=== PATIENT | male | born 1985 | race American Indian/Alaskan Native ===

== ENCOUNTER 2020-03-30 11:13 | Emergency (ER) | payer SELFPAY ==
[2020-03-30] MEDS ORDERED: ONDANSETRON 4 MG/2 ML INJ IV ONE (13:09)
[2020-03-30] MEDS ORDERED: MORPHINE 2 MG/1 ML INJ IV ONE (13:09)
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
== END 2020-03-30 13:30 ==
LOC: ED 11:13
DX: T07.XXXA Unspecified multiple injuries, initial encounter (principal); I46.9 Cardiac arrest, cause unspecified; X58.XXXA Exposure to other specified factors, initial encounter; Y93.89 Activity, other specified; Y92.89 Other specified places as the place of occurrence of the external cause; Y99.8 Other external cause status